=== PATIENT | female | born 1975 | race Caucasian/White ===

== ENCOUNTER → 2024-06-03 08:50 | Outpatient (BNVA) | payer OTHER, SELFPAY | PROVIDERS: PCP Physician Assistant; Visit Provider Physician Assistant | DX: E66.9 Obesity, unspecified (principal); Z68.39 Body mass index [BMI] 39.0-39.9, adult; E55.9 Vitamin D deficiency, unspecified; E78.5 Hyperlipidemia, unspecified | CPT/HCPCS: 96127 ==

== ENCOUNTER 2024-06-06 07:02 | Outpatient (REF) | payer OTHER, SELFPAY ==
[2024-06-06 07:35] LABS: MANUAL DIFF FLAG NO
[2024-06-06 07:42] LABS: Basophils Percent Auto 0.2 % (0-2); Eosinophils Absolute Auto 0.2 X10*3/uL (0.0-0.4); Eosinophils Percent Auto 2.8 % (0-4); Hematocrit 40.7 % (37.0-47.0); Hemoglobin 13.7 g/dl (12.0-16.0); Imm Gran Abs Auto 0.01 X10*3/uL (0.00-0.03); Imm Gran Pct Auto 0.2 % (0.0-0.4); Lymphocytes Absolute Auto 1.9 X10*3/uL (1.2-4.9); Lymphocytes Percent Auto 29.8 % (20-40); Mean Corpuscular HGB Conc 33.7 g/dl (31.0-35.0); Mean Corpuscular Hemoglobin 31.6 pg (27.0-33.0); Mean Platelet Volume 9.3 fL (9.4-12.3); Monocytes Absolute Auto 0.4 X10*3/uL (0.1-1.2); Monocytes Percent Auto 6.5 % (2-11); Neutrophils Absolute Auto 3.9 x10*3/uL (2.0-8.3); Neutrophils Percent Auto 60.5 % (45-73); Platelet Count 188 X10*3/uL (160-400); Red Blood Count 4.33 X10*6/uL (4.20-5.50); Red Cell Distribution Width 11.5 % (11.0-16.0); White Blood Count 6.5 X10*3/uL (4.8-10.8)
[2024-06-06 07:46] LABS: Estimated Average Glucose 88 mg/dL; Hemoglobin A1c % 4.7 % (<6.0); Total Hemoglobin (HGBA1C) 3630.0465 umol/L
[2024-06-06 08:09] LABS: Alanine Aminotransferase 24 U/L (0-31); Albumin Level 4.1 g/dL (3.5-5.0); Alkaline Phosphatase 52 U/L (39-117); Anion Gap 13 (12-20); Aspartate Amino Transferase 24 U/L (5-31); Bilirubin Total 0.6 mg/dL (0.0-1.0); Blood Urea Nitrogen 12 mg/dL (9-16); Calcium 9.2 mg/dL (8.4-10.2); Carbon Dioxide 22 mmol/L (22-29); Chloride 109 mmol/L (96-108); Cholesterol 160 mg/dL (<200); Estimated Glomerular Filt Rate > 60; Glucose Random 88 mg/dL (60-115); HDL Cholesterol 43 mg/dL (>40); LDL Cholesterol Calculated 101 mg/dL (<100); Potassium 4.2 mmol/L (3.3-5.1); Sodium 140 mmol/L (135-145); Total Protein 6.9 g/dL (6.5-8.0); Triglycerides 84 mg/dL (<150)
[2024-06-06 08:20] LABS: Cortisol Random 10.6 ug/dL
[2024-06-06 08:24] LABS: Insulin 8 uU/mL (2-29); TSH reflex Free T4 1.48 uIU/mL (0.32-4.0); Vitamin D 25-OH Total 33.3 ng/mL (>30)
[2024-06-06 08:34] LABS: Folate 15.9 ng/mL (> or = 4.0); Vitamin B12 373 pg/mL (200-900)
[2024-06-09 18:28] LABS: Zinc 73 mcg/dL (60-130)
[2024-06-10 17:53] LABS: Vitamin A 56 mcg/dL (38-98)
[2024-06-13 17:58] LABS: Vitamin B1 14 nmol/L (8-30)
== END 2024-06-06 07:03 | disposition home or self-care (01) ==
LOC: HO.LAB 07:02
PROVIDERS: PCP Physician Assistant; Visit Provider Physician Assistant
DX: E66.9 Obesity, unspecified (principal); E55.9 Vitamin D deficiency, unspecified; E78.5 Hyperlipidemia, unspecified; Z13.1 Encounter for screening for diabetes mellitus
CPT/HCPCS: 36415; 80053; 80061; 82306; 82533; 82607; 82746; 83036; 83525; 84425; 84443; 84590; 84630; 85025

== ENCOUNTER 2024-10-21 15:01 | Outpatient (AMB) | payer OTHER, SELFPAY ==
--- NOTE | 2024-10-21 15:10 | A.OFFPC_ITS ---
Vital Signs 10/21/24 15:18 Height 5 ft 2.8 in Weight 217 lb 6 oz BMI 38.7 BP 116/72 Blood Pressure Location Rt brachial Position Sitting Respiration 12 Pulse 80 Pulse Source Pulse Oximeter Temp 97.9 F Temp Source Oral Pulse Oximetry (%) 98 Oxygen Delivery Method Room Air Intake Visit Reasons: PRE menopause symptoms Intake Note: Premenopause symptoms Certified Genetic Counselor Required: No Allergies No Known Allergies Allergy (Verified 10/21/24 15:12) Tobacco use date assessed: 10/21/24 Dental Screening Dental Screen Date: 06/03/24 HPI PRE menopause symptoms HPI Details Patient is a 48-year-old female who presents today For a follow up. General: She just started a beach body program. She is down 6 lbs. She is feeling very positive about this. States that it works on balancing hormones, carb cycling and avoiding processed foods and sugars. She does not like the idea of having to take medication and her mother has not tolerated GLP 1s. She has been motivated to lose weight for years and is finding that this programs actually working for her. She does exercise regularly. She does have a history of intermittent vitamin-D deficiency. CV: she states that over the last few months she has intermittently felt pal pitations. She states that they will last for a few minutes. She thinks it is triggered by hormones but she is not sure. She denies any change in her chronic sort of chest pain. She states over the last few years she has had intermittent chest pain that she states she can tell is anxiety. She has had this worked up by Cardiology and states that she has had multiple stress test. She states that sometimes when she gets the palpitations she does feel this discomfort. She does not notice any dizziness, shortness on breath or nausea with this. She does not have any other associated symptoms other than intermittent shortness a breath with the palpitations but again thinks it is related to anxiety. Psych: felt depression Over the last few months and believes it is coinciding with her hormones. She is interested in hormone replacement therapy. Colonoscopy: in 2023- had a polyp so due in 2028 Mammo: done on 05/30/24 at [facility] [employer]: wants a referral to inside wireman Works for [employer]. Maternal grandfather had MIs in his 60s, father had liver ca (did not drink). [facility] Surgical History (Updated 06/03/24 @ 09:04 by Lindsay Ribera CMA) H/O wrist surgery H/O section Family History (Updated 06/03/24 @ 09:02 by Lindsay Ribera CMA) Sister Depression Anxiety Mother Diabetes HTN (hypertension) Maternal Grandmother Ovarian cancer Maternal Grandfather Brain cancer Other FH: mental illness Liver cancer Substance abuse Social History (Updated 06/03/24 @ 09:18 by Lindsay Ribera CMA) Housing: House Alcohol intake: current Patient Tobacco Use Status: Former Tobacco user Cigarette Packs Per Day: 5 Years Smoked: 2 e-Cigarette/Vaping Use: Never Used Second Hand Smoke Exposure: No service: No Current occupational status: employed 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 Current occupational exposures/hazards: No Cognitive needs: No Hearing needs: No Vision needs: Yes (contacts/glasses) Questionnaire Thrive Questionnaire Date Thrive assessed: 06/03/24 I am a: Patient What is your living situation today?: I have a steady place to live Within the past 12 months, did the food you bought not last and you didn't have the money to get more?: Never true Within the past 12 months, did you worry whether your food would run out before you got money to buy more?: Never true Do you have trouble paying for medicines?: No Do you have trouble getting transportation to medical appointments?: No Do you have trouble paying your heating and electricity bill?: No Do you have trouble taking care of your child, family member or friend?: No Do you have trouble with day-to-day activities such as bathing, preparing meals, shopping, managing finances, etc.?: No Are you currently unemployed and looking for a job?: No Are you interested in more education?: No Please select the resources that you would like help with: None Currently or been in a relationship where the following occur: No concerns reported THRIVE Score: 0 RICHARD-7 AMB Questionnaire RICHARD-7 Date RICHARD - 7 assessed: 06/03/24 Source: Developed by Drs. Isai Hernandez, Harriett Meyer, Arnulfo Erickson and colleagues, with an educational keila from [employer]. Physical exam (Primary Care) Vital Signs: Last Vital Signs Temp 97.9 F 10/21/24 15:18 Pulse 80 10/21/24 15:18 Resp 12 10/21/24 15:18 BP 116/72 10/21/24 15:18 Pulse Ox 98 10/21/24 15:18 Oxygen Delivery Method Room Air 10/21/24 15:18 BMI result Body Mass Index 38.7 Tobacco/Smoking Status: Tobacco use Status Tobacco use date assessed 10/21/24 10/21/24 15:22 Patient Tobacco Use Status Former Tobacco user 10/21/24 15:15 e-Cigarette/Vaping Use Never Used 10/21/24 15:15 Thrive Assessment: Date of Thrive Assessment Date Thrive assessed 06/03/24 10/21/24 15:15 Currently or been in a relationship where the following occur: No concerns rep orted Const Orientation/consciousness: patient oriented x3 HENMT Ears: hearing grossly normal bilaterally Neck Thyroid: Thyroid normal Lymphatic: no lymphadenopathy noted Resp Auscultation: clear to auscultation bilaterally Cardio Rate: regular rate Rhythm: regular rhythm Heart sounds: S1 normal heart sound present and S2 normal heart sound present GI Inspection: Yes normal to inspection Palpation (GI): Soft to palpation and Other GI palpation findings present (nontender, no cva tenderness) Auscultation: normoactive bowel sounds Rectal Exam - Female: deferred Skin General skin exam: no rashes or lesions noted Neuro General: patient oriented x3, gait normal and no focal motor deficits Office Procedures EKG Details: EKG today in the office normal sinus rhythm. No prior study to review [id number], Complete Coding Level of Care Code Est Pt Level 4 (18450) Complex EM visit Add On G2211 Diagnoses Palpitations R00.2 Perimenopausal symptoms N95.1 CPT Codes EKG - CPT: 09790-[id number], Complete ([id number]) Assessment & Plan Assessment & Plan (1) Palpitations: Code(s): R00.2 - Palpitations Category: Medical Plan: sorry EKG listed above. We will order Holter monitor and echo. We will follow up pending test results. (2) Perimenopausal symptoms: Code(s): N95.1 - Menopausal and female climacteric states Plan: She will follow with functional medicine. She does have an upcoming appointment in November with OBGYN to further discuss this. She does not wish for any other treatment other than hormone replacement therapy. Orders: Orders CA echo transthoracic complete 06/18/25 R00.2 - Palpitations, R06.02 - Shortnes s of breath ECG holter monitor 24 hour 10/21/24 R00.2 - Palpitations, R06.02 - Shortness of breath AMB EKG-In Office 10/21/24 R00.2 - Palpitations, Z13.6 - Encounter for screening for cardiovascular disorders
[2024-10-21 15:18] VITALS: BP 116/72; PULSE 80; RESP 12; TEMP 36.6; O2SAT 98; BMI 38.7
== END 2024-10-21 16:01 | disposition home or self-care (01) ==
LOC: HO.HMCFM 15:02
PROVIDERS: PCP Physician Assistant; Visit Provider Physician Assistant
DX: R00.2 Palpitations (principal); N95.1 Menopausal and female climacteric states

== ENCOUNTER → 2024-10-21 15:01 | Outpatient (BNVA) | payer OTHER, SELFPAY | PROVIDERS: PCP Physician Assistant; Visit Provider Physician Assistant | DX: R00.2 Palpitations (principal); N95.1 Menopausal and female climacteric states; R06.02 Shortness of breath; E55.9 Vitamin D deficiency, unspecified; F41.9 Anxiety disorder, unspecified | CPT/HCPCS: 93005 ==

== ENCOUNTER → 2024-11-20 13:39 | Outpatient (REF) | payer OTHER, SELFPAY ==
--- NOTE | 2024-11-20 13:42 | HM_ITS ---
Conclusion: 1. Patient was monitored for total period of 1 day 2. Baseline was normal sinus rhythm with average heart of 78 beats per minute 3. No significant pauses noted 4. Patient marked the counter 3 times with symptoms of chest tightness, burning correlating with sinus rhythm MTDD
--- NOTE | 2024-11-20 13:42 | CA_ITS ---
Transthoracic Echocardiogram Patient (Last, First, Middle): Malika Xiong, Gender: Female Date of : 1975 Age: 49 Procedure Date: 11/20/2024 Procedure Type: Transthoracic Echocardiogram Location: OP Height: 160.02 cm Weight: 98.43 kg BSA: 2.00 m2 Heart Rate: bpm BP: 110 / 78 mmHg Machine Stuffer Automatic: TO Referring MD: Yadira Nichols PA-C Symptoms: R00.2 - Palpitations Study Quality: Fair/Contrast ECG Rhythm: Sinus Conclusions: - The left ventricular systolic function is normal. The calculated ejection fraction is 65% by biplane method. - No obvious valvular pathology seen on this study. Findings Procedure Information Contrast agent, definity, is being given per protocol without apparent complications. Left Ventricle Normal left ventricular cavity size. There is normal left ventricular wall thickness. The left ventricular systolic function is normal. The calculated ejection fraction is 65% by biplane method. There is no evidence of regional wall motion abnormalities. Diastolic function is normal for age. Right Ventricle Normal right ventricular cavity size and systolic function. Atria Both atria are normal in size. Aortic Valve There is a normal trileaflet aortic valve. There is no aortic valve stenosis. There is no aortic valve regurgitation. Mitral Valve The mitral valve appears normal. There is no mitral valve regurgitation. There is no mitral valve stenosis. Pulmonic Valve The pulmonic valve is likely normal. Tricuspid Valve There is mild tricuspid valve regurgitation. There is no evidence of pulmonary hypertension. Great Vessels The asc aorta is normal in size. Venous The inferior vena cava is normal in size and collapses greater than 50% with inspiration. Pericardium/Pleural There is no evidence of pericardial effusion. Prior Study Comparison No prior study available for comparison. Recommendations, Care & Conclusions No obvious valvular pathology seen on this study. Measurements 2D Linear Measurements IVSd: 0.87 0.6-0.9/0.6-1.0 cm LVIDd: 4.07 3.9-5.3/4.2-5.9 cm LVIDd Index: 2.04 2.4-3.2/2.2-3.1 cm/m2 LVIDs: 2.66 2.0-3.6 cm LVPWd: 0.79 0.7-1.1 cm LA Diam: 3.40 2.7-3.8/3.0-4.0 cm LAIDs Index: 1.70 1.5-2.3 cm/m2 LV Mass: 125.75 67-162/88-224 g LV Mass Index: 62.87 43-95/49-115 g/m2 LVOT Diam: 2.10 3.0+(-)1.3 cm 2D Systolic Function EF 4C: 64.00 >55% EF 2C: 64.20 >55% EF BiP: 65.40 >55% Mitral Valve MV Pk E: 0.77 MV PK A: 0.48 MV Decel Time: 215.00 E/A: 1.60 E'Lateral: 12.30 E'Medial: 8.70 E/E' Med: 8.90 E/E' Lat: 6.30 PHT: 63.00 MVA PHT: 3.49 Decel Moody: 3.59 Aortic Valve AoV Pk Bbeeto: 1.68 AoV Mn Bebeto: 1.11 AoV VTI: 0.32 AoV Pk Grad: 11.00 Aov Mn Grad: 6.00 EMERY Cont.VTI: 2.08 LVOT LVOT Pk Bebeto: 0.96 LVOT Mn Bebeto: 0.67 LVOT VTI: 0.20 LVOT Pk Grad: 4.00 LVOT Mn Grad: 2.00 LVOT Diam: 2.10 LVOT Area: 3.46 Diastolic Function MV Pk E: 0.77 MV Pk A: 0.48 E/A: 1.60 E'Medial: 8.70 E/E' Med: 8.90 E' Laterial: 12.30 E/E' Lat: 6.30 Right Ventricle TAPSE (mm): 22.80 TVS' Bebeto: 11.20 Tricuspid Valve TR Pk Bebeto: 2.12 TR Pk Grad: 18.00 RA Press: 3.00 RVSP: 21.00 Great Vessels Aorta Sinus of Valsalva: 2.95 2.0-3.5 cm Ao Asc: 3.10 2.1-3.4 cm Ao Arch: 2.90 Updated in Other Vendor System with Status of Final Dann Kelly MD electronically signed on 11/21/2024 11:38:21 AM with status of Final
--- OUTSIDE RECORDS SUMMARY | 2024-11-20 13:42 | XMS_ITS | Clinical Summary ---
Author Organization [address] Address [address] [place] [phone] Phone Care Team Providers Care Physiatrist Name Role Phone Ewa Oden MD Primary Care Provider [phone] Allergies No known active allergies Medications flaxseed oiL 1,000 mg capsule Take 1 Cap by mouth daily. Active levonorgestreL (MIRENA) 21 mcg/24 hr (8 yrs) 52 mg IUD 1 Each by Intrauterine route once. 6 Active glucosamine/cho ndro spear A/C/Mn (GLUCOSAMINE-CH ONDROITIN COMPLX ORAL) Take 3 Caps by mouth daily. Active Lactobacillus acidophilus (PROBIOTIC ORAL) Take by mouth. Activ e multivitamin (MULTIPLE VITAMINS ORAL) Take 1 Tab by mouth daily. Active Active Problems Problem Noted Date Diagnosed Date Sebaceous cyst 03/03/2020 Overview (02/13/2024): Last Assessment & Plan: Reviewed findings with patient. Reassured not worrisome. Recommended warm compress and gentle expression if she desires to make it go away. Cautioned re: possible recurrence. Apply vaseline prior to bike ride to avoid irritation. Patient voiced understanding and agreed. Keratoconjunctivitis sicca 11/20/2017 Dysplastic nevus 01/31/2010 Overview (02/13/2024): Dysplastic nevus 01/13 abdomen (moderate atypia) Severe obesity (BMI 35.0-39. 9) with comorbidity ([facility]/HCC V24, [facility] V28) 03/17/2007 Immunizations Name Administration Dates Next Due Influenza Quadravalent, MDCK , 0.5ml, preservative free (Flucelvax) 6mo and older 02/01/2021,03/13/2019 Influenza Quadravalent, MDCK , 0.5ml, with preservative (Flucelvax) 6mo and older 02/23/2018 Influenza trivalent, 0.5mL ( Fluzone High-dose) 65yo and older 01/16/2017,01/24/2014,03/08/2013,2011 Influenza trivalent, 0.5mL, preservative free (Fluarix; FluLaval; Fluzone) ages 6mo and older (Afluria) 3 years and older 01/17/2016,01/13/2015 Influenza trivalent, with preservative (Fluzone; Afluria) 6mo and older 01/28/2007 Influenza, Unspecified 01/13/2015,01/24/2014 Td Tetanus diptheria (Tdvax) 7yo and older 08/04/2004 Tdap Tetanus diptheria acell ular pertussis (Boostrix; Adacel) 7yo and older 01/12/2011 Surgical History Surgery Date Site/Laterality Comments SECTION PROCEDURE: HISTORICAL DELIVERY OTHER SURGICAL HISTORY 05/2022 PROCEDURE: MAMMOGRAM WRIST SURGERY 2014 Right PROCEDURE: HISTORICAL WRIST SURGERY CHOLECYSTECTOMY 03/2020 PROCEDURE: HISTORICAL CHOLECYSTECTOMY Medical History Medical History Date Comments Obesity 03/17/2007 DX:Obesity Dysplastic nevus 01/31/2010 DX:Dysplastic n evus Dry eyes 01/12/2011 DX:Dry eyes Colles' fracture 07/05/2014 DX:Colles' frac ture; COMMENT: Right, 07/18 Family History Medical History Relation Name Comments Hyperlipidemia Father liver cancer (non-EtOH) Breast cancer Father's side 1 2nd cousins TWO paterna l second cousins Pancreatic cancer Father's side 2 2nd cousin Heart attack Maternal Grandfather multipl e MIs, brain cancer Ovarian cancer Maternal Grandmother Diabetes Mother hypertension, A AA (without rupture) Breast cancer Mother's side great aunt Prostate cancer Paternal Grandfather Cervical cancer Paternal Grandmother Eczema Son Relation Name Status Comments Brother x 1 Alive Father Father's side 1 2nd cousins Father's side 2 2nd cousin Maternal Grandfather Maternal Grandmother Mother Alive Mother's side great aunt Paternal Grandfather Paternal Grandmother Sister x 1 Alive Son Alive Social History Tobacco Use Types Packs/Day Years Used Date Smoking Tobacco: Former Smokeless Tobacco: Never Alcohol Use Standard Drinks/Week Comments Not Currently 0 (1 standard drink = 0.6 oz pur e alcohol) Comments Unknown Sex and Gender Information Value Date Recorded Sex Assigned at Not on file Legal Sex Female 10:05 PM EST Gender Identity Not on file Sexual Orientation Not on file Obstetrics History Para Term AB IAB SAB Ectopic Multiple Livin g Live Births 1 Date Outcome GA Total Labor Labor//3rd Weight Sex Type Anes PTL Isabella A1 A5 Name Clin Term Last Filed Vital Signs Vital Sign Reading Time Taken Comments Blood Pressure 122/72 03/21/2023 4:21 PM EST C Pulse 72 03/21/2023 4:21 PM EST Temperature - - Respiratory Rate - - Oxygen Saturation - - Inhaled Oxygen Concentration - - Weight 99.3 kg (219 lb) 03/21/2023 4:21 PM EST Height 162.6 cm (5' 4 ) 03/21/2023 4:21 PM EST Body Mass Index 37.59 03/21/2023 4:21 PM EST Plan of Treatment Health Maintenance Due Date Last Done Comments Hepatitis B Vaccines (1 of 3 - 19+ 3-dose series) 10/30/1995 Pneumococcal Vaccine: Pediatrics (0 to 5 Years) and At-Risk Patients (6 to 49 Years) (1 of 2 - PCV) 10/30/1995 Cervical Cancer Screening: HPV 1997 COVID-19 Vaccine (3 - Pfizer risk series) 10/03/2020 09/05/2020, 08/13/2020 DTaP,Tdap,and Td Vaccines (3 - Td or Tdap) 01/12/2021 01/12/2011, 08/04/2004 Colorectal Cancer Screening: Colonoscopy 04/14/2022 Depression Screening 04/14/2022 HIV Screening 04/14/2022 Hepatitis C Screening 04/14/2022 Social Influencers of Health Screening 04/14/2022 Influenza Vaccine (#1) 2025 , 03/13/2019, 02/23/2018, Additional history exists Breast Cancer Screening 06/01/2026 06/01/19, 05/20/2023, 05/14/2022, Additional history exists Cholesterol Screening (Lipid Panel) 03/27/2028 03/27/2023 HIB Vaccines Aged Out No longer eligi ble based on patient's age to complete this topic HPV Vaccines Aged Out No longer eligi ble based on patient's age to complete this topic Hepatitis A Vaccines Aged Out No long er eligible based on patient's age to complete this topic IPV Vaccines Aged Out No longer eligi ble based on patient's age to complete this topic MMR Vaccines Aged Out No longer eligi ble based on patient's age to complete this topic Meningococcal ACWY Vaccine Aged Out N o longer eligible based on patient's age to complete this topic Meningococcal B Vaccine Aged Out No l onger eligible based on patient's age to complete this topic RSV Immunization Patients Under 20 months Aged Out No longer eligible based on patient's age to complete this topic Varicella Vaccines Aged Out No longer eligible based on patient's age to complete this topic Procedures Procedure Name Priority Date/Time Associated Diagnosis Comments MG MAMMO DIGITAL SCREENING W BORA BILAT Routine 06/01/2024 7:47 AM EST Encounter for screening mammogram for breast cancer LIPID PANEL Routine 03/27/2023 from Last 3 Months or Most Recently Relevant to Health Maintenance Results * MG Mammo Digital Screening w Bora bilat (06/01/2024 7:47 AM EST) Anatomical Region Laterality Modality Breast Bilateral Mammography 06/01/2024 6:39 PM EST Impressions 06/01/2024 6:49 PM EST 1. No mammographic evidence of malignancy 2. Scattered fibroglandular tissue BI-RADS CATEGORY: 2 - BENIGN RECOMMENDATION: Screening bilateral mammogram is recommended in 1 year. Mammo Location: [facility], [address] [place] [address], [id number], . -------- FINAL REPORT -------- Dictated By: Chetan Birch Dictated Date: 06/01/2024 18:39 ET Assigned Physician: Chetan Birch Reviewed and Electronically Signed By: Chetan Birch Signed Date: 06/01/2024 18:49 ET Workstation ID: [id number] Transcribed By: Self Edit Transcribed Date: 06/01/2024 18:39 ET Narrative 06/01/2024 6:49 PM EST A BILATERAL DIGITAL 3D SCREENING MAMMOGRAPHY HISTORY: Routine screening. Family history of breast cancer COMPARISON: Multiple priors dating back to 05/03/2020 Technique: Bilateral full field digital mammography (3D) was performed using standard CC and MLO projections CAD was used to evaluate this mammogram. FINDINGS: Right: No suspicious masses, groups of microcalcification or areas of architectural distortion identified. Stable typically benign parenchymal asymmetries. Left: No suspicious masses, groups of microcalcification or areas of architectural distortion identified. Stable typically benign parenchymal asymmetries. BREAST DENSITY: B - There are scattered areas of fibroglandular density. Procedure Note Chetan Birch MD - 06/01/2024 A BILATERAL DIGITAL 3D SCREENING MAMMOGRAPHY HISTORY: Routine screening. Family history of breast cancer COMPARISON: Multiple priors dating back to 05/03/2020 Technique: Bilateral full field digital mammography (3D) was performedusing standard CC and MLO projections CAD was used to evaluate this mammogram. FINDINGS: Right: No suspicious masses, groups of microcalcification or areas ofarchitectural distortion identified. Stable typically benign parenchymalasymmetries. Left: No suspicious masses, groups of microcalcification or areas ofarchitectural distortion identified. Stable typically benign parenchymalasymmetries. BREAST DENSITY: B - There are scattered areas of fibroglandular density. IMPRESSION: 1. No mammographic evidence of malignancy 2. Scattered fibroglandular tissue BI-RADS CATEGORY: 2 - BENIGN RECOMMENDATION: Screening bilateral mammogram is recommended in 1 year. Mammo Location: [facility], [address] [address], [id number], . -------- FINAL REPORT -------- Dictated By: Chetan Birch Dictated Date: 06/01/2024 18:39 ET Assigned Physician: Chetan Birch Reviewed and Electronically Signed By: Chetan Birhc Signed Date: 06/01/2024 18:49 ET Workstation ID: [id number] Transcribed By: Self Edit Transcribed Date: 06/01/2024 18:39 ET Ewa Oden MD IMG BI PROCEDURES Final Result * (ABNORMAL) Lipid panel (03/27/2023) LDL/HDL Ratio 4 0 - 4 Triglycerides 119 0 - 150 mg/dL Cholesterol 198 0 - 200 mg/dL HDL 55 >=40 mg/dL LDL Cholesterol 120(A) 0 - 100 mg/dL Blood Venous blood specimen / Unknown us Historical Provider LAB BLOOD ORDERABLES Nikky l Result from Last 3 Months or Most Recently Relevant to Health Maintenance Insurance [facility] Care Teams Physiatrist Relationship Specialty Start Date End Date Ewa Oden MD [address] [place] [id number] PCP - General 06/15/04
--- OUTSIDE RECORDS SUMMARY | 2024-11-20 13:42 | XMS_ITS | Clinical Summary ---
Author Organization [facility] Address [address] [facility] [address] [place] [phone] Phone Care Team Providers Care Sanitarian Inspector Name Role Phone Ewa Oden MD Primary Care Provider [phone] Allergies No known active allergies Medications flaxseed oil 1,000 mg Cap as directed Orally Active levonorgestrel (MIRENA) 20 mcg/24 hr (5 years) intrauterine device as directed Intrauterine Active multivitamin (MULTIPLE VITAMIN ORAL) Take 1 tablet by mouth. Active glucosamine-adelaida droit-vit C-Mn (GLUCOSAMINE-CHO NDROITIN COMPLX) Cap Take 3 capsules by mouth. Active ibuprofen (ADVIL,MOTRIN) 600 MG tablet Take 600 mg by mouth. 9 Active Lacto.acidophilu s-Bif.animalis (PROBIOTIC) 5 billion cell CpSP Take by mouth. 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 (06/26/2014): Genital HSV I Gastroesophageal reflux disease 08/13/2000 Overview (06/26/2014): GERD Encounters Date Type Department Care Team Description 10/27/2024 Telephone [facility] [address] [place] [address] Unknown, Unknown, Appointment from Last 3 Months Family History Medical History Relation Comments Uncoded Family History Unspecified NIDDM, HT N, brain cancer grandfather Relation Status Comments Unspecified Social History Tobacco Use Types Packs/Day Years Used Date Smoking Tobacco: Former Cigarettes Q uit: 12/27/1997 Education Answer Date Recorded Are you interested in more education? Not on mercy e 08/31/2022 Are you concerned about learning? Not on file 08/31/2022 No 08/31/2022 No 08/31/2022 Digital Access Answer Date Recorded No 09/30/2022 No 09/30/2022 Reliable internet access at home? Not on file 09/30/2022 Device with a working camera? Not on file Comments Unknown Sex and Gender Information Value Date Recorded Sex Assigned at Not on file Legal Sex Female 5:16 PM EST Gender Identity Not on file Sexual Orientation Not on file Last Filed Vital Signs Vital Sign Reading Time Taken Comments Blood Pressure - - Pulse - - Temperature - - Respiratory Rate - - Oxygen Saturation - - Inhaled Oxygen Concentration - - Weight 93.4 kg (206 lb) 12/28/2019 11:37 AM EDT Height 162.6 cm (5' 4 ) 12/28/2019 11:37 AM EDT Body Mass Index 35.36 12/28/2019 11:37 AM EDT Plan of Treatment Health Maintenance Due Date Last Done Comments LIPID PANEL 1976 DEPRESSION SCREENING 1988 SMOKING Hx and SMOKELESS TOBACCO SCREENING 1989 HEPATITIS C SCREENING 1994 HIV ONE-TIME SCREENING (18-6 5 YEARS) 1994 MAMMOGRAM 2016 PAP SMEAR 08/05/2017 08/05/2014 Adult Td,Tdap Booster 01/12/2021 01/12/2011 , 08/04/2004 COLOGUARD 2021 COLONOSCOPY 2021 COLORECTAL CANCER SCREENING 2021 FIT TEST 2021 FOBT 2021 SIGMOIDOSCOPY 2021 VIRTUAL COLONOSCOPY 2021 COVID-19 VACCINE (2023-2 5 season) 2024 08/13/2020 HEPATITIS A VACCINES Aged Out No long er eligible based on patient's age to complete this topic HIB VACCINES Aged Out No longer eligi ble based on patient's age to complete this topic MENINGOCOCCAL VACCINES (ACWY) Aged Out No longer eligible based on patient's age to complete this topic MENINGOCOCCAL VACCINES (B) Aged Out N o longer eligible based on patient's age to complete this topic PNEUMOCOCCAL VACCINES (0-49 years) Aged Out No longer eligible b ased on patient's age to complete this topic Medical Devices Not on file Insurance [facility] [employer] PPO [facility] [employer] P[employer] [facility] [employer] [facility] [employer] [facility] [employer] [facility] [employer] PPO [facility] [employer] PPO [facility] [employer] PPO [facility] [employer] PPO Care Teams Sanitarian Inspector Relationship Specialty Start Date End Date Ewa Oden MD [address] [place] [phone] PCP - General 05/09/17 Additional Source Comments The information contained in this document represents components of the legal health record. It is not the complete legal health record.[facility]
== END ==
LOC: HO.CARD 13:39
PROVIDERS: PCP Physician Assistant; Visit Provider Physician Assistant
DX: R06.02 Shortness of breath (principal); R00.2 Palpitations
CPT/HCPCS: 93225; 93306; Q9957

== ENCOUNTER → 2024-11-20 13:42 | Outpatient (BNV) | payer OTHER, SELFPAY | PROVIDERS: PCP Physician Assistant; Visit Provider Internal Medicine | DX: I36.1 Nonrheumatic tricuspid (valve) insufficiency (principal); R00.2 Palpitations | CPT/HCPCS: 93306 ==

== ENCOUNTER 2025-01-19 12:43 | Outpatient (REF) | payer OTHER, SELFPAY | END 2025-01-19 12:44 | disposition home or self-care (01) | LOC: HO.LNP 12:43 | PROVIDERS: PCP Physician Assistant; Visit Provider Obstetrics & Gynecology | DX: Z01.419 Encounter for gynecological examination (general) (routine) without abnormal findings (principal); Z11.51 Encounter for screening for human papillomavirus (HPV) | CPT/HCPCS: 87626; 88175 ==

== ENCOUNTER 2025-01-19 12:43 | Outpatient (AMB) | payer OTHER, SELFPAY ==
--- NOTE | 2025-01-19 12:44 | A.OFFVIS_ITS ---
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 Last pap smear x3 years ago. Had a colpo many years ago. Cruller Maker Machine: Cruller Maker Machine Present ([employer]al[employer]) Accompanied by: Self / Same As Patient Allergies No Known Allergies Allergy (Verified 01/19/25 12:54) HPI Comments Details: Presenting for annual exam. Complaining of hot flashes. Has Mirena IUD inserted 2 years ago. The patient was prescribed Prometrium 200 mg p.o. q.d. has been on it for the last 30 today Last Pap/HPV was many years ago Last Mammogram was negative at [facility] in May of 2024 according to patient, no records available Last colonoscopy was 2 years ago, the recommendation was to repeat in 5 years and a records available [facility] Surgical History History of laparoscopic cholecystectomy H/O wrist surgery H/O section Family History Sister Depression Anxiety Mother Diabetes HTN (hypertension) Maternal Grandmother Ovarian cancer Maternal Grandfather Brain cancer Other FH: mental illness Liver cancer Substance abuse Social History Housing: House Alcohol intake: current Patient Tobacco Use Status: Former Tobacco user Cigarette Packs Per Day: 5 Years Smoked: 2 e-Cigarette/Vaping Use: Never Used Second Hand Smoke Exposure: No service: No Current occupational status: employed 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 [employer] Current occupational exposures/hazards: No Cognitive needs: No Hearing needs: No Vision needs: Yes (contacts/glasses) Female Reproductive History Menstrual Age of Menarche: 13 control method: progestin IUCD (Mirena ) Total pregnancies: 2 Full term: 1 Ab spontaneous: 1 Date of Mammogram: 05/19/24 Review of Systems Const All systems reviewed & are unremarkable except as noted in HPI and below Card Reports as per HPI Resp Reports as per HPI GI Reports as per HPI and Reports no additional complaints Reports as per HPI Physical Exam Vital Signs: Last Vital Signs BP 114/72 01/19/25 12:52 BMI result Body Mass Index 39.5 Const General: cooperative, healthy appearing and comfortable Chest Chest palpation & inspection: normal inspection of the chest and normal palpation of entire chest wall Breast/axilla inspection: normal inspection of the breasts and normal inspection of the axillae Breast/axilla palpation: normal palpation of the breasts, normal palpation of the axillae and no axillary lymphadenopathy Resp Effort & Inspection: normal respiratory effort Auscultation: clear to auscultation bilaterally Percussion: percussion normal Cardio Palpation: normal PMI Rate: regular rate Rhythm: regular rhythm Heart sounds: no murmurs and no rubs Peripheral pulses: Peripheral pulses 2+ throughout GI Inspection: Yes normal to inspection Palpation (GI): Soft to palpation, nontender, no guarding, not rigid and No hepatosplenomegaly present Percussion: Yes normal to percussion Auscultation: normal bowel sounds Rectal Exam - Female: deferred General: Yes bladder normal to palpation External Female Exam: No lesion Speculum Exam - Vagina: normal appearance of the vagina, normal palpation, norm al vaginal discharge and not erythematous Speculum Exam - Cervix: normal appearance of the cervix, normal palpation and Other cervical findings present (IUD string in place) Bimanual exam- vagina & uterus: normal bimanual exam, normal palpation, uterine size normal, bladder normal to palpation, consistency normal and normal palpation Bimanual Exam- Adnexa, other: normal adnexae, no masses and no tenderness Assessment & Plan Assessment & Plan (1) Well woman exam: Code(s): Z01.419 - Encounter for gynecological examination (general) (routine) without abnormal findings Category: Medical Plan: Cotesting done. Instructions given the patient to schedule next screening Mammogram in 05/31. Counseled the patient about the recommended dietary allowance of 1000 mg of Calcium & 600 IU of vitamin D. The patient was instructed to perform monthly self-breast exams and to schedule an annual exam in a year; All questions answered and the patient verbalized understanding. Instructed the patient to schedule annual exam in a year (2) Hot flashes: Code(s): R23.2 - Flushing Category: Medical Plan: Instructions given the patient to discontinue Prometrium carmen FSH/LH ordered to be done in 2 weeks, instructions given the patient is schedule a follow-up appointment 2 weeks (3) IUD check up: Code(s): Z30.431 - Encounter for routine checking of intrauterine contraceptive device Category: Medical Plan: Discussed with the patient the finding on physical exam, IUD string in place, the patient was reassured. Instructions given to patient to call in case of temperature above 100.4, severe cramping/pelvic pain, abnormal discharge or abnormal uterine bleeding or if she misses her menstrual cycle. Otherwise follow-up at her annual exam appointment. All questions answered, the patient verbalized understanding. Orders: Orders Follicle Stimulating Hormone Today R23.2 - Flushing HPV High risk Today Z01.419 - Encounter for gynecological examination (general) (routine) without abnormal findings Lutenizing Hormone Today R23.2 - Flushing Pap Smear Today Z01.419 - Encounter for gynecological examination (general) (routine) without abnormal findings Coding Level of Care Code New Pt Prev Care 40-64y(86458) Diagnoses Well woman exam Z01.419 Hot flashes R23.2 IUD check up Z30.431
[2025-01-19 12:52] VITALS: BP 114/72; BMI 39.5
--- OUTSIDE RECORDS SUMMARY | 2025-01-19 16:41 | XMS_ITS | Clinical Summary ---
Author Organization [facility] Address [address] [facility] [address] [place] [address] Phone Care Team Providers Care Ironworker Name Role Phone Ewa Oden MD Primary Care Provider [phone] Allergies No known active allergies Medications flaxseed [...] Telephone [facility] [address] [place] [address] Unknown, Unknown, Appointment from Last 3 Months [...] HEPATITIS C SCREENING 1994 HIV ONE-TIME SCREENING (18-65 YEARS) 1994 MAMMOGRAM 2016 PAP SMEAR 08/05/2017 08/05/2014 Adult Td,Tdap Booster 01/12/2021 01/12/2011, 005 COLOGUARD 2021 COLONOSCOPY 2021 COLORECTAL CANCER SCREENING 2021 FIT TEST 2021 FOBT 2021 SIGMOIDOSCOPY 2021 VIRTUAL COLONOSCOPY 2021 INFLUENZA VACCINE (#1) 2024 , 03/13/2019, 02/23/2018, Additional history exists COVID-19 VACCINE ( season) 2025 08/13/2020 HEPATITIS A VACCINES Aged Out No [...] (0-49 years) Aged Out No longer eligible based on patient's age to complete this topic Medical Devices Not on file Insurance [facility] [employer] PPO [facility] [employer] PPO [facility] [employer] [place] [address] [place] [address] [employer] [facility] [employer] P[employer] [facility] [employer] PPO [facility] [employer] PPO Care Teams Ironworker Relationship Specialty Start Date End Date Ewa Oden MD [address] [place] [address] PCP - General 05/09/17 Additional Source Comments The information contained in this document represents components of the legal health record. It is not the complete legal health record.[facility]
--- OUTSIDE RECORDS SUMMARY | 2025-01-19 16:41 | XMS_ITS | Clinical Summary ---
Author Organization [address] Address [address] [place] [phone] Phone Care Team Providers Care Forging Die Finisher Name Role Phone Ewa Oden MD Primary Care Provider [phone] Allergies No known active allergies Medications flaxseed [...] Severe obesity (BMI 35.0-39. 9) with comorbidity ([facility]/HCC V24, [facility] V28) 03/17/2007 Immunizations Name Administration Dates Next [...] SAB Ectopic Multiple Livin g Live Births Date Outcome GA Total Labor Labor//3rd Weight [...] of 3 - 19+ 3-dose series) 10/30/1995 Cervical Cancer Screening: HPV 1997 COVID-19 Vaccine (3 - Pfizer risk series) 10/03/2020 09/05/2020, 08/13/2020 DTaP,Tdap,and Td Vaccines (3 - Td or Tdap) 01/12/2021 01/12/2011, 08/04/2004 Colorectal Cancer Screening: Colonoscopy 04/14/2022 HIV Screening 04/14/2022 Hepatitis C Screening 04/14/2022 Social Influencers of Health Screening 04/14/2022 Depression Screening 05/06/2024 Influenza Vaccine (#1) 2025 , 03/13/2019, 02/23/2018, Additional history exists Breast Cancer Screening 06/01/2026 06/01/19 25, 05/20/2023, 05/14/2022, Additional history exists Cholesterol Screening [...] on patient's age to complete this topic Pneumococcal Vaccine: Pediatrics (0 to 5 Years) and At-Risk Patients (6 to 49 Years) Aged Out No longer eligible based on [...] is recommended in 1 year. Mammo Location: [facility], [address] [place] [address], [address], . -------- FINAL REPORT -------- Dictated By: Chetan Birch Dictated Date: 06/01/2024 18:39 ET Assigned Physician: Chetan Birch Reviewed and Electronically Signed By: Chetan Birch Signed Date: 06/01/2024 18:49 ET Workstation ID: [id number] Transcribed By: Self Edit Transcribed Date: 06/01/2024 [...] is recommended in 1 year. Mammo Location: [facility], [address] [place] [address], [address], . -------- FINAL REPORT -------- Dictated By: Chetan Birch Dictated Date: 06/01/2024 18:39 ET Assigned Physician: Chetan Birch Reviewed and Electronically Signed By: Chetan Birch Signed Date: 06/01/2024 18:49 ET Workstation ID: [id number] Transcribed By: Self Edit Transcribed Date: 06/01/2024 [...] Most Recently Relevant to Health Maintenance Insurance [facility] Care Teams Forging Die Finisher Relationship Specialty Start Date End Date Ewa Oden MD [address] [place] [address] PCP - General 06/15/04
== END 2025-01-19 13:37 | disposition home or self-care (01) ==
LOC: HO.HWS 12:43
PROVIDERS: PCP Physician Assistant; Visit Provider Obstetrics & Gynecology
DX: Z01.419 Encounter for gynecological examination (general) (routine) without abnormal findings (principal); R23.2 Flushing
CPT/HCPCS: 99386; 99459

== ENCOUNTER 2025-02-27 08:37 | Outpatient (REF) | payer OTHER, SELFPAY ==
[2025-03-01 05:29] LABS: Follicle Stimulating Hormone 8.4 mIU/mL
== END 2025-02-27 08:38 | disposition home or self-care (01) ==
LOC: HO.LAB 08:37
PROVIDERS: PCP Physician Assistant; Visit Provider Obstetrics & Gynecology
DX: R23.2 Flushing (principal)
CPT/HCPCS: 36415; 83001; 83002

== ENCOUNTER 2025-03-01 10:01 | Outpatient (AMB) | payer OTHER, SELFPAY ==
--- NOTE | 2025-03-01 10:02 | MHC.OFFVIS ---
Intake Visit Reasons: Labs results Allergies No Known Allergies Allergy (Verified 01/19/25 12:54) HPI Comments Details: The patient scheduled a telehealth visit for follow-up regarding hot flashes. FSH/LH in the menopausal range. PFSH Surgical History History of laparoscopic cholecystectomy H/O wrist surgery H/O section Family History Sister Depression Anxiety Mother Diabetes HTN (hypertension) Maternal Grandmother Ovarian cancer Maternal Grandfather Brain cancer Other FH: mental illness Liver cancer Substance abuse Social History Housing: House Alcohol intake: current Patient Tobacco Use Status: Former Tobacco user Cigarette Packs Per Day: 5 Years Smoked: 2 e-Cigarette/Vaping Use: Never Used Second Hand Smoke Exposure: No service: No Current occupational status: employed Current occupation: [employer] Current occupational exposures/hazards: No Cognitive needs: No Hearing needs: No Vision needs: Yes (contacts/glasses) Female Reproductive History Menstrual Age of Menarche: 13 Telehealth Telehealth Telehealth Platform: [employer] Location of provider rendering services: practice address Location of patient: address on file Patient Identification confirmed using: Name, : Yes Telehealth method: video Patient verbally consented to treatment: Yes Patient verbally consented to billing insurance company: Yes Patient informed of any privacy concerns related to visit: Yes Minutes spent on Phone/Video with Pt.: 2 Assessment & Plan Assessment & Plan (1) Hot flashes: Code(s): R23.2 - Flushing Category: Medical Plan: Discussed with the patient the results of the FSH/LH in the premenopausal range, instructions given the patient to call if symptoms persist or get worse any other additional menopausal symptoms will investigate further. All questions answered, the patient verbalized understanding. I spent a total of 20 minutes reviewing the chart, talking to the patient via video and documenting in the medical record. Coding Level of Care Code Tele Est Pt Level 3 ([address]44[address]) Diagnoses Hot flashes R23.2
--- OUTSIDE RECORDS SUMMARY | 2025-03-01 11:49 | XMS_ITS | Clinical Summary ---
Author Organization [address] Address [address] [place] [phone] Phone Care Team Providers Care Pet Supplies Salesperson Name Role Phone Ewa Oden MD Primary Care Provider [phone] Allergies No known active allergies Medications flaxseed [...] Severe obesity (BMI 35.0-39. 9) with comorbidity ([facility]/HCC V24, [facility] V28) 03/17/2007 Immunizations Immunization Administration Dates Next Due Influenza Quadravalent, MDCK [...] Health Maintenance Due Date Last Done Comments Colorectal Cancer Screening: Colonoscopy 1976 Hepatitis B Vaccines (1 of 3 - 19+ 3-dose series) 10/30/1995 Cervical Cancer Screening: HPV 1997 COVID-19 Vaccine (3 - Pfizer risk series) 10/03/2020 09/05/2020, 08/13/2020 DTaP,Tdap,and Td Vaccines (3 - Td or Tdap) 01/12/2021 01/12/2011, 08/04/2004 HIV Screening 04/14/2022 Hepatitis C Screening 04/14/2022 Social Influencers of Health Screening 04/14/2022 Depression Screening 05/06/2024 Influenza Vaccine (#1) 2025 , 03/13/2019, 02/23/2018, Additional history exists Breast Cancer Screening 06/01/2026 06/01/19 25, 05/20/2023, 05/14/2022, Additional history exists Cholesterol Screening (Lipid Panel) 03/27/2028 03/27/2023 RSV Immunization Adult Patients (1 - 1-dose 75+ series) 10/30/2051 HIB Vaccines Aged Out No longer eligi [...] is recommended in 1 year. Mammo Location: [facility], [address] [place] [address], [address], . -------- FINAL REPORT -------- Dictated By: Chetan Birch Dictated Date: 06/01/2024 18:39 ET Assigned Physician: Chetan Birch Reviewed and Electronically Signed By: Chetan Birch Signed Date: 06/01/2024 18:49 ET Workstation ID: [id number] Transcribed By: Self Edit Transcribed Date: 06/01/2024 [...] is recommended in 1 year. Mammo Location: [facility], [address] [place] [address], [address], . -------- FINAL REPORT -------- Dictated By: Chetan Birch Dictated Date: 06/01/2024 18:39 ET Assigned Physician: Chetan Birch Reviewed and Electronically Signed By: Chetan Birch Signed Date: 06/01/2024 18:49 ET Workstation ID: [id number] Transcribed By: Self Edit Transcribed Date: 06/01/2024 18:39 ET Ewa Oden MD IMG BI PROCEDURES Final Result * (ABNORMAL) Lipid panel (03/27/2023) LDL/HDL Ratio 4 0 - 4 Triglycerides 119 0 - 150 mg/dL Cholesterol 198 0 - 200 mg/dL HDL 55 >=40 mg/dL LDL Cholesterol 120(A) 0 - 100 mg/dL Blood Venous blood specimen / Unknown Historical Provider LAB BLOOD ORDERABLES Nikky l Result from Last 3 Months or Most Recently Relevant to Health Maintenance [place] [address] [address] [place] [address] Care Teams Pet Supplies Salesperson Relationship Specialty Start Date End Date Ewa Oden MD [address] [place] [address] PCP - General 06/15/04
== END 2025-03-01 10:23 | disposition home or self-care (01) ==
LOC: HO.HWS 10:01
PROVIDERS: PCP Physician Assistant; Visit Provider Obstetrics & Gynecology
DX: R23.2 Flushing (principal)
CPT/HCPCS: 99213

== ENCOUNTER 2025-03-03 07:49 | Outpatient (AMB) | payer OTHER, SELFPAY ==
--- OUTSIDE RECORDS SUMMARY | 2025-03-03 07:53 | XMS_ITS | Clinical Summary ---
Author Organization [facility] Address [address] [facility] [address] [place] [phone] Phone Care Team Providers Care Ski Maker Wood Name Role Phone Ewa Oden MD Primary Care Provider Allergies No known active allergies Medications flaxseed [...] Gastroesophageal reflux disease 08/13/2000 Overview (06/26/2014): GERD Family History Medical History Relation Comments Uncoded [...] topic Medical Devices Not on file Insurance [facility] [employer] PPO [facility] [email or web address] PPO [facility] [employer] PPO [facility] [employer] PPO [facility] [employer]PO [facility] [email or web address] PPO [facility] [employer] PPO [facility] [employer] PPO [facility] PAS[employer] PPO Care Teams Ski Maker Wood Relationship Specialty Start Date End Date Ewa Oden MD [address] [place] [id number] PCP - General 05/09/17 Additional Source Comments The information contained in this document represents components of the legal health record. It is not the complete legal health record.[facility]
--- OUTSIDE RECORDS SUMMARY | 2025-03-03 07:53 | XMS_ITS | Clinical Summary ---
Author Organization [address] Address [address] [place] [phone] Phone Care Team Providers Care Advertising Operations Manager Name Role Phone Ewa Oden MD Primary Care Provider [phone] Allergies No known active allergies Medications flaxseed [...] Severe obesity (BMI 35.0-39. 9) with comorbidity ([facility]/HCC V24, [facility] V28) 03/17/2007 Immunizations Immunization Administration [...] is recommended in 1 year. Mammo Location: [facility], [address] [place] [address], [address], . -------- FINAL REPORT -------- Dictated By: Chetan Birch Dictated Date: 06/01/2024 18:39 ET Assigned Physician: Chetan Birch Reviewed and Electronically Signed By: Chetan Birch Signed Date: 06/01/2024 18:49 ET Workstation ID: [id number] Transcribed By: Self Edit Transcribed Date: 06/01/2024 [...] is recommended in 1 year. Mammo Location: [facility], [address] [place] [address], [address], . -------- FINAL REPORT -------- Dictated By: Chetan Birch Dictated Date: 06/01/2024 18:39 ET Assigned Physician: Chetan Birch Reviewed and Electronically Signed By: Chetan Birch Signed Date: 06/01/2024 18:49 ET Workstation ID: [id number] Transcribed By: Self Edit Transcribed Date: 06/01/2024 [...] Most Recently Relevant to Health Maintenance [place] [address] [address] Care Teams Advertising Operations Manager Relationship Specialty Start Date End Date Ewa Oden MD [address] [place] [address] PCP - General 06/15/04
[2025-03-03 07:57] VITALS: BP 112/76; PULSE 97; RESP 16; TEMP 36.7; O2SAT 97; BMI 41.7
--- NOTE | 2025-03-03 07:57 | A.OFFPC_ITS ---
Vital Signs 03/03/25 07:57 Height 5 ft 2 in Weight 228 lb BMI 41.7 BP 112/76 Blood Pressure Location Rt brachial Position Sitting Respiration 16 Pulse 97 Pulse Source Pulse Oximeter Temp 98.1 F Temp Source Oral Pulse Oximetry (%) 97 Oxygen Delivery Method Room Air Intake Visit Reasons: Annual Physical Intake Note: Physical Public Message Service Supervisor Required: No Allergies No Known Allergies Allergy (Verified 03/03/25 08:00) Tobacco use date assessed: 03/03/25 Dental Screening Dental Screen Date: 06/03/24 HPI Annual Physical HPI Details Patient is a 49-year-old female who presents today For a physical. No acute complaints today. General: S States that it works on balancing hormones, carb cycling and avoiding processed foods and sugars. She does exercise regularly. She does have a history of intermittent vitamin-D deficiency. 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 Maternal grandfather had MIs in his 60s, father had liver ca (did not drink). [facility] Surgical History History of laparoscopic cholecystectomy H/O wrist surgery H/O section Family History Sister Depression Anxiety Mother Diabetes HTN (hypertension) Maternal Grandmother Ovarian cancer Maternal Grandfather Brain cancer Other FH: mental illness Liver cancer Substance abuse Social History (Updated 03/03/25 @ 08:05 by Lindsay Ribera CMA) Housing: House Alcohol intake: current Patient Tobacco Use Status: Former Tobacco user Cigarette Packs Per Day: 5 Years Smoked: 2 e-Cigarette/Vaping Use: Never Used Second Hand Smoke Exposure: No service: No Current occupational status: employed Current occupation: [employer] [place] [employer] Current occupational exposures/hazards: No Cognitive needs: No Hearing needs: No Vision needs: Yes (contacts/glasses) Female Reproductive History Menstrual Age of Menarche: 13 Questionnaire Thrive Questionnaire Date Thrive assessed: 06/03/24 I am a: Patient What is your living situation today?: I have a steady place to live Within the past 12 months, did the food you bought not last and you didn't have the money to get more?: Never true Within the past 12 months, did you worry whether your food would run out before you got money to buy more?: Never true Do you have trouble paying for medicines?: No Do you have trouble getting transportation to medical appointments?: No Do you have trouble paying your heating and electricity bill?: No Do you have trouble taking care of your child, family member or friend?: No Do you have trouble with day-to-day activities such as bathing, preparing meals, shopping, managing finances, etc.?: No Are you currently unemployed and looking for a job?: No Are you interested in more education?: No Please select the resources that you would like help with: None Currently or been in a relationship where the following occur: No concerns reported THRIVE Score: 0 AUDIT C Alcohol Use Questionnaire (AUDIT-C) 1. How often do you have a drink containing alcohol?: Monthly or less 2. How many drinks containing alcohol do you have on a typical day when you are drinking?: 1 or 2 3. How often do you have six or more drinks on one occasion?: Never Total Score: 1 RICHARD-7 AMB Questionnaire RICHARD-7 Date RICHARD - 7 assessed: 06/03/24 Source: Developed by Drs. Isai Hernandez, Harriett Meyer, Arnulfo Erickson and colleagues, with an educational keila from [employer]. Physical exam (Primary Care) Vital Signs: Last Vital Signs Temp 98.1 F 03/03/25 07:57 Pulse 97 03/03/25 07:57 Resp 16 03/03/25 07:57 BP 112/76 03/03/25 07:57 Pulse Ox 97 03/03/25 07:57 Oxygen Delivery Method Room Air 03/03/25 07:57 BMI result Body Mass Index 41.7 Tobacco/Smoking Status: Tobacco use Status Tobacco use date assessed 03/03/25 03/03/25 08:05 Patient Tobacco Use Status Former Tobacco user 03/03/25 08:05 e-Cigarette/Vaping Use Never Used 03/03/25 08:05 Thrive Assessment: Date of Thrive Assessment Date Thrive assessed 06/03/24 03/03/25 08:00 Currently or been in a relationship where the following occur: No concerns reported Const Orientation/consciousness: patient oriented x3 HENMT Ears: hearing grossly normal bilaterally and TM's normal bilaterally General nose exam: No nasal polyps present Face and sinus: Yes sinuses nontender Mouth: Normal oral and palatal mucosa present Eyes Pupils: Equal, round and reactive pupils present EOM: EOMs intact bilaterally Neck Neck: Yes full ROM and Yes no lymphadenopathy Thyroid: Thyroid normal Chest Chest palpation & inspection: normal inspection of the chest Resp Auscultation: clear to auscultation bilaterally Cardio Rate: regular rate Rhythm: regular rhythm Heart sounds: S1 normal heart sound present and S2 normal heart sound present Peripheral pulses: Peripheral pulses 2+ throughout GI Other: Soft, nontender Auscultation: normal bowel sounds Rectal Exam - Female: deferred General: Yes no CVA tenderness Back/Spine/Pelvis Other: Nontender Back: no CVA tenderness Skin General skin exam: no rashes or lesions noted Neuro General: patient oriented x3, gait normal, CN's II-XI intact bilaterally and deep tendon reflexes 2+ bilaterally Cranial nerves: Yes Equal, round and reactive pupils present Motor exam (neuro): 5/5 motor strength present throughout Sensory Exam: double simultaneous stimulation for sensation normal Coordination: [id number] test normal and Romberg test negative Extrem General: Yes normal to inspection and Yes full ROM Psych Affect: normal affect Attitude: cooperative Thought process: Normal thought process present Thought content: Normal thought content present Insight: Good insight present (Psych) Judgement: Good judgement present (Psych) Coding Level of Care Code Est Pt Prev Care 40-64y(53371) Diagnoses Routine general medical examination at a health care facility Z00.00 Assessment & Plan Assessment & Plan (1) Routine general medical examination at a health care facility: Code(s): Z00.00 - Encounter for general adult medical examination without abnormal findings Plan: reviewed labs reviewed flu shot today she will call if any changes otherwise, 1 year cpe Orders: Orders Comprehensive [place]. Panel Fast Today E66.9 - Obesity, unspecified, E78.5 - Hyperlipidemia, unspecified, Z00.00 - Encounter for general adult medical examination without abnormal findings, Z01.419 - Encounter for gynecological examination (general) (routine) without abnormal findings MM screening mammo BI Today Z12.31 - Encounter for screening mammogram for malignant neoplasm of breast Complete Blood Count Auto Diff Today E66.9 - Obesity, unspecified, E78.5 - Hyperlipidemia, unspecified, Z00.00 - Encounter for general adult medical examination without abnormal findings, Z01.419 - Encounter for gynecological examination (general) (routine) without abnormal findings Lipid Panel Today E66.9 - Obesity, unspecified, E78.5 - Hyperlipidemia, unspecified, Z00.00 - Encounter for general adult medical examination without abnormal findings, Z01.419 - Encounter for gynecological examination (general) (routine) without abnormal findings TSH reflex Free T4 Today E66.9 - Obesity, unspecified, E78.5 - Hyperlipidemia, unspecified, Z00.00 - Encounter for general adult medical examination without abnormal findings, Z01.419 - Encounter for gynecological examination (general) (routine) without abnormal findings UA CC w/rflx Micro + Cult Today E66.9 - Obesity, unspecified, E78.5 - Hyperlipidemia, unspecified, R30.0 - Dysuria, Z00.00 - Encounter for general adult medical examination without abnormal findings, Z01.419 - Encounter for gynecological examination (general) (routine) without abnormal findings
== END 2025-03-03 08:29 | disposition home or self-care (01) ==
PROVIDERS: PCP Physician Assistant; Visit Provider Physician Assistant
DX: Z00.00 Encounter for general adult medical examination without abnormal findings (principal); Z23 Encounter for immunization

== ENCOUNTER → 2025-03-03 07:49 | Outpatient (BNVA) | payer OTHER, SELFPAY | PROVIDERS: PCP Physician Assistant; Visit Provider Physician Assistant | DX: Z00.00 Encounter for general adult medical examination without abnormal findings (principal); E55.9 Vitamin D deficiency, unspecified; Z23 Encounter for immunization | CPT/HCPCS: 90471; 90656 ==